=== PATIENT | male | born 1965 | race Caucasian/White ===

== ENCOUNTER → 2020-03-19 08:50 | Outpatient (BNVA) | payer OTHER, SELFPAY | PROVIDERS: Family Provider Family Medicine; PCP Family Medicine; Visit Provider Nurse Practitioner Family | DX: Z20.828 Contact with and (suspected) exposure to other viral communicable diseases (principal) | CPT/HCPCS: 87635 ==

== ENCOUNTER → 2022-07-12 08:23 | Outpatient (BNVA) | payer OTHER, SELFPAY | PROVIDERS: Family Provider Family Medicine; PCP Family Medicine; Visit Provider Dermatology | DX: Z01.89 Encounter for other specified special examinations (principal) ==

== ENCOUNTER 2023-02-15 12:00 | Outpatient (CLI) | payer OTHER, SELFPAY | END 2023-02-15 12:01 | disposition home or self-care (01) | LOC: SLEEP 02-16 11:41 | PROVIDERS: Family Provider Family Medicine; PCP Family Medicine; Visit Provider Family Medicine | DX: G47.33 Obstructive sleep apnea (adult) (pediatric) (principal) | CPT/HCPCS: G0399 ==

== ENCOUNTER → 2023-09-05 08:40 | Outpatient (BNVA) | payer OTHER, SELFPAY | PROVIDERS: Family Provider Family Medicine; PCP Family Medicine; Visit Provider Family Medicine | DX: Z00.00 Encounter for general adult medical examination without abnormal findings (principal); I10 Essential (primary) hypertension; N18.9 Chronic kidney disease, unspecified; R73.03 Prediabetes; R53.83 Other fatigue; R79.89 Other specified abnormal findings of blood chemistry | CPT/HCPCS: 80053; 80061; 82306; 83036; 84443; 85025 ==

== ENCOUNTER → 2023-09-12 08:15 | Outpatient (BNVA) | payer OTHER, SELFPAY | PROVIDERS: Family Provider Family Medicine; PCP Family Medicine; Visit Provider Family Medicine | DX: R79.89 Other specified abnormal findings of blood chemistry (principal); E11.9 Type 2 diabetes mellitus without complications | CPT/HCPCS: 80074; 80076; 86618; 86666; 86757 ==

== ENCOUNTER → 2024-01-04 11:48 | Outpatient (BNVA) | payer OTHER, SELFPAY | PROVIDERS: Family Provider Family Medicine; PCP Family Medicine; Visit Provider Family Medicine | DX: E11.9 Type 2 diabetes mellitus without complications (principal) | CPT/HCPCS: 80053; 83036 ==

== ENCOUNTER → 2024-01-09 07:20 | Outpatient (BNVA) | payer OTHER, SELFPAY | PROVIDERS: Family Provider Family Medicine; PCP Family Medicine; Visit Provider Family Medicine | DX: R79.89 Other specified abnormal findings of blood chemistry (principal); R51.9 Headache, unspecified | CPT/HCPCS: 80074; 82525; 83540; 83690; 86003; 86008; 86140; 86618; 86666; 86757 ==

== ENCOUNTER 2024-01-25 07:58 | Outpatient (CLI) | payer OTHER, SELFPAY ==
--- NOTE | 2024-01-25 08:30 | US_ITS ---
WS: [id number] RIGHT UPPER QUADRANT ULTRASOUND HISTORY: elevated lft's COMPARISON: CT 12/26/2013 Liver: 15.0 cm in length. Liver is normal size but there is marked hepatic steatosis. Poor visualizat ion of the portal triads. No discrete mass. Portal Vein: Normal hepatopetal flow with monophasic waveform. Gallbladder: Limited visualization due to body habitus. No stones identified. CBD: 0.4 cm Pancreas: Not visualized. Right kidney: 10.9 cm in length. Normal size and echogenicity. No hydronephrosis or mass. Aorta and IVC: Negative aorta. IVC is not visualized. No ascites. US/US liver [id number] IMPRESSION: 1. Limited RIGHT upper quadrant ultrasound by body habitus. 2. Diffuse advanced hepatic steatosis. 3. Negative gallbladder. 4. Nonvisualization of the pancreas.
== END 2024-01-25 07:59 | disposition home or self-care (01) ==
LOC: RAD 07:58
PROVIDERS: Family Provider Family Medicine; PCP Family Medicine; Visit Provider Family Medicine
DX: R79.89 Other specified abnormal findings of blood chemistry (principal); K76.0 Fatty (change of) liver, not elsewhere classified
CPT/HCPCS: 76705; 80074; 82525; 83540; 83690; 86003; 86008; 86140; 86618; 86666; 86757

== ENCOUNTER 2024-02-29 11:40 | Outpatient (CLI) | payer OTHER, SELFPAY ==
--- NOTE | 2024-02-29 12:00 | CTR_ITS ---
PROCEDURE INFORMATION: Exam: CT Abdomen Without And With Contrast Exam date and time: 02/29/2024 11:53 AM Age: 58 years old Clinical indication: Abnormal findings; Abnormal lab test; Elevated lipase; Prior surgery; Surgery date: 6+ months; Surgery type: Appy; Additional info: Fatty liver, elevated lipase TECHNIQUE: Imaging protocol: Computed tomography of the abdomen without and with contrast. Radiation optimization: All CT scans at this facility use at least one of these dose optimization techniques: automated exposure control; mA and/or kV adjustment per patient size (includes targeted exams where dose is matched to clinical indication); or iterative reconstruction. Contrast material: OMNI 350; Contrast volume: 100 ml; Contrast route: INTRAVENOUS (IV); COMPARISON: [place] liver [id number] 01/25/2024 8:09 AM RADIATION DOSE METRICS: Total DLP (mGy-cm): 2616.51 FINDINGS: Liver: Moderate hepatic steatosis noted. Slight nodular contour to the liver margins. Cirrhosis not excluded. There are scattered ill-defined hypodensities in the liver on the precontrast study Gallbladder and biliary ducts: Normal. No calcified stones. No ductal dilation. Pancreas: Normal. No ductal dilation. Spleen: Normal. No splenomegaly. Adrenal glands: Normal. No mass. Kidneys: Normal. No hydronephrosis. Stomach and bowel: Mildly prominent small bowel loops noted in the right lower quadrant. Appendix: There has been appendectomy. Intraperitoneal space: Unremarkable. No free air. No significant fluid collection. Vasculature: Heterogeneous density in the portal veins likely mixing artifact. Lymph nodes: Unremarkable. No enlarged lymph nodes. Bones/joints: Unremarkable. No acute fracture. No dislocation. Soft tissues: Unremarkable. CT/CT abdomen wo/w con [id number] IMPRESSION: 1. No acute findings. 2. Findings concerning for cirrhosis. Consider medical liver biopsy if indicated.
[2024-02-29] MEDS: iohexol 350 mg/mL 500 mL Btl (per mL) IV (12:03)
== END 2024-02-29 11:41 | disposition home or self-care (01) ==
PROVIDERS: PCP Family Medicine; Visit Provider Family Medicine
DX: R79.89 Other specified abnormal findings of blood chemistry (principal); K76.0 Fatty (change of) liver, not elsewhere classified; R93.2 Abnormal findings on diagnostic imaging of liver and biliary tract; Z90.49 Acquired absence of other specified parts of digestive tract
CPT/HCPCS: 74170

== ENCOUNTER → 2024-04-09 07:56 | Outpatient (BNVA) | payer OTHER, SELFPAY | PROVIDERS: PCP Family Medicine; Visit Provider Family Medicine | DX: E11.9 Type 2 diabetes mellitus without complications (principal); R79.89 Other specified abnormal findings of blood chemistry | CPT/HCPCS: 80053; 83036 ==

== ENCOUNTER → 2024-07-10 09:57 | Outpatient (BNVA) | payer OTHER, SELFPAY | PROVIDERS: PCP Family Medicine; Visit Provider Family Medicine | DX: N18.9 Chronic kidney disease, unspecified (principal); I10 Essential (primary) hypertension; R73.03 Prediabetes; E11.9 Type 2 diabetes mellitus without complications; R79.89 Other specified abnormal findings of blood chemistry | CPT/HCPCS: 80053; 80061; 83036; 85025 ==

== ENCOUNTER 2024-08-09 09:53 | Outpatient (CLI) | payer OTHER, SELFPAY | END 2024-08-09 09:54 | disposition home or self-care (01) | LOC: LAB 09:57 | PROVIDERS: PCP Family Medicine; Visit Provider Nurse Practitioner Family | DX: R74.01 Elevation of levels of liver transaminase levels (principal); K76.0 Fatty (change of) liver, not elsewhere classified | CPT/HCPCS: 81256 ==

== ENCOUNTER → 2024-10-10 10:47 | Outpatient (BNVA) | payer OTHER, SELFPAY | PROVIDERS: PCP Family Medicine; Visit Provider Family Medicine | DX: I10 Essential (primary) hypertension (principal); R73.03 Prediabetes; N18.9 Chronic kidney disease, unspecified | CPT/HCPCS: 80053; 80061; 83036; 85025 ==

== ENCOUNTER 2024-10-21 01:08 | Emergency (ER) | payer OTHER, SELFPAY ==
[2024-10-21 01:11] VITALS: BP 134/102; PULSE 113; RESP 16; TEMP 36.8; O2SAT 93; BMI 31.9
[2024-10-21 02:02] LABS: Basophils % 0.1 %; Eosinophils % 0.1 %; Hematocrit 55.1 % (37-53); Lymphocytes # 1.6 10^3/uL (0.8-4.8); Lymphocytes % 9.7 %; Mean Corpuscular HGB Conc 33.8 g/dL (30-55); Mean Corpuscular Hemoglobin 31.3 pg (27-33); Mean Corpuscular Volume 92.6 fl (82-101); Mean Platelet Volume 10.5 fL (7.4-10.4); Monocytes # 1.1 10^3/uL (0.2-0.9); Monocytes % 6.4 %; Neutrophils # 13.98 10^3/uL (1.8-7.7); Neutrophils % 83.3 %; Nucleated Red Blood Cells % 0 %; Platelet Count 175 10^3/cmm (157-399); Red Blood Count 5.95 10^6/uL (3.85-5.65); Red Cell Distribution Width 12.9 % (12.1-15.1); White Blood Count 16.78 10^3/uL (3.29-11.43)
[2024-10-21 02:20] LABS: Alanine Aminotransferase 122 U/L (0-41); Albumin Level 4.4 g/dL (3.5-5.2); Alkaline Phosphatase 83 U/L (40-130); Anion Gap 21.3 (5-19); Aspartate Amino Transferase 50 U/L (0-40); Blood Urea Nitrogen 23 mg/dL (6-20); Calcium 9.5 mg/dL (8.5-10.5); Carbon Dioxide 18 mmol/L (22-29); Chloride 103 mmol/L (98-107); Creatinine Clr Calc Pharmacy 96.6457; Globulin 3.8 g/dL (1.3-4.6); Glomerular Filtration Rate 68.5 mL/min (90-130); Glucose 278 mg/dL (65-115); Osmolality Calculated 300 mOsm/kg (285-295); Potassium 4.3 mmol/L (3.5-5.1); Sodium 138 mmol/L (136-145); Total Protein 8.2 g/dL (6.6-8.7)
[2024-10-21 03:48] LABS: C Reactive Protein 18.2 mg/L (0.0-4.9); Creatine Phosphokinase 294 U/L (39-308)
--- NOTE | 2024-10-21 04:29 | W.ED.NAVMDI ---
Documented by User: Barrington Denny DO 10/21/24 05:23 HPI - Nausea/Vomiting/Diarrhea General: Chief complaint: Nausea/Vomiting/Diarrhea Stated complaint: Possible Heat\Cramps Time Seen by Provider: 10/21/24 04:10 History of Present Illness: 58-year-old male gentleman he says he was out in the heat all day yesterday. Around 4 PM, he began to vomit. He vomited every hour for several hours. He is feeling quite dehydrated now. He is experiencing leg cramps and stomach cramps at times. No fever. No diarrhea. No abdominal pain. No chest pain. No recent cough. No sick contacts. Related Data Home Medications ?Medication ?Instructions ?Recorded ?Confirmed aspirin 81 mg tablet,delayed 81 mg PO DAILY 08/30/21 10/17/24 release cholecalciferol (vitamin D3) 50 50 mcg PO DAILY 08/30/21 10/17/24 mcg (2,000 unit) capsule Previous Rx's ?Medication ?Instructions ?Recorded scopolamine base 1 mg over 3 days 1 patch transdermal Q3D PRN nausea 08/23/22 transdermal patch and vomiting #4 ea Auto titrating C-pap 6-16 #1 ea 03/28/23 c-pap mask and supplies #1 ea 07/16/24 glimepiride 2 mg tablet 2 mg PO BID #60 tabs 07/16/24 ondansetron 4 mg disintegrating 4 mg PO Q6H PRN nausea and 10/21/24 tablet vomiting #14 tabs Allergies Allergy/AdvReac Type Severity Reaction Status Date / Time No Known Allergies Allergy Verified 02/08/24 12:21 [facility] ED PFSH: Medical History GUADALUPE (nonalcoholic steatohepatitis) Hemochromatosis Hepatic steatosis Obstructive sleep apnea Colon polyps Diabetes mellitus Surgical History History of appendectomy History of colonoscopy 5 years ago History of hemorrhoidectomy Social History Smoking and tobacco/nicotine status: unknown if used tobacco/nicotine Physical Exam Const: COMMON NORMALS: no acute distress GENERAL APPEARANCE: cooperative; not ill appearing and not frail appearing HENMT: COMMON NORMALS: normocephalic, atraumatic and Normal external nose present HEAD & SCALP: normocephalic and atraumatic FACE & SINUS: normal facial exam and face symmetric NOSE: Normal external nose present Eye: COMMON NORMALS: Equal, round and reactive pupils present and EOMs intact bilaterally PUPIL: Yes Equal, round and reactive pupils present Neck/C-Spine: GENERAL: Yes trachea midline Chest: CHEST: Yes Symmetrical chest wall rise Resp: COMMON NORMALS: normal respiratory effort, No retractions, No use of accessory muscles and clear to auscultation bilaterally AUSCULTATION: clear to auscultation bilaterally Cardio: COMMON NORMALS: regular rate and regular rhythm RATE: regular rate RHYTHM: regular rhythm GI: COMMON NORMALS: Normal to inspection, nondistended, normoactive bowel sounds present PALPATION: No Tenderness to palpation present (GI) Extremity: COMMON NORMALS: no pedal edema Neuro: MARYSE COMA SCALE: document GCS findings Maryse coma scale eye opening: Spontaneous [place] coma scale verbal response: Orientated [place] coma scale motor response: [place] commands Maryse coma scale total score: 15 SENSORY EXAM: Yes extremities (intact) Psych: COMMON NORMALS: speech normal SPEECH: Yes normal speech Skin: COMMON NORMALS: no rashes or lesions noted GENERAL SKIN EXAM: no rashes or lesions noted Course Vital Signs: Vital signs: Vital Signs Temperature 98.3 F 10/21/24 01:11 Pulse Rate 92 10/21/24 06:00 Respiratory Rate 16 10/21/24 06:00 Blood Pressure 119/75 10/21/24 06:00 Pulse Oximetry 92 10/21/24 06:00 Oxygen Delivery Me thod Room Air 10/21/24 06:00 MDM - Nausea/Vomiting/Diarrhea Medical Decision Making Patient has a leukocytosis of 17 without significant left shift. CRP is 18. He was mildly tachycardic on arrival, not currently. His bicarbonate level is 18, anion gap of 21. Blood sugar is 278. He appears dehydrated clinically. He will be given 2.5 L bolus, antiemetics. His belly is not tender at all on exam. Do not suspect infectious or inflammatory process. He tells me he has hemochromatosis from higher iron levels, and is undergoing phlebotomy therapy later today. I think this is reasonable, especially given the amount of fluid we have given him in the ER. Lab Data 10/21/24 01:44 10/21/24 01:44 Laboratory Results WBC 16.78 10^3/uL (3.29-11.43) H 10/21/24 01:44 RBC 5.95 10^6/uL (3.85-5.65) H 10/21/24 01:44 Hgb 18.60 g/dL (11.27-16.99) H 10/21/24 01:44 Hct 55.1 % (37-53) H 10/21/24 01:44 MCV 92.6 fl (82-101) 10/21/24 01:44 MCH 31.3 pg (27-33) 10/21/24 01:44 MCHC 33.8 g/dL (30-55) 10/21/24 01:44 RDW 12.9 % (12.1-15.1) 10/21/24 01:44 Plt Count 175 10^3/cmm (157-399) 10/21/24 01:44 MPV 10.5 fL (7.4-10.4) H 10/21/24 01:44 Neut % (Auto) 83.3 % 10/21/24 01:44 Lymph % (Auto) 9.7 % 10/21/24 01:44 [place] % (Auto) 6.4 % 10/21/24 01:44 Eos % (Auto) 0.1 % 10/21/24 01:44 Baso % (Auto) 0.1 % 10/21/24 01:44 Neut # (Auto) 13.98 10^3/uL (1.8-7.7) H 10/21/24 01:44 Lymph # (Auto) 1.6 10^3/uL (0.8-4.8) 10/21/24 01:44 [place] # (Auto) 1.1 10^3/uL (0.2-0.9) H 10/21/24 01:44 Eos # (Auto) 0.0 10^3/uL (0.0-0.8) 10/21/24 01:44 Baso # (Auto) 0.0 10^3/uL (0.0-0.1) 10/21/24 01:44 Nucleated RBC % (auto) 0 % 10/21/24 01:44 Nucleated RBCs # 0.0 /100WBC 10/21/24 01:44 Sodium 138 mmol/L (136-145) 10/21/24 01:44 Potassium 4.3 mmol/L (3.5-5.1) 10/21/24 01:44 Chloride 103 mmol/L (98-107) 10/21/24 01:44 Carbon Dioxide 18 mmol/L (22-29) L 10/21/24 01:44 Anion Gap 21.3 (5-19) H 10/21/24 01:44 BUN 23 mg/dL (6-20) H 10/21/24 01:44 Creatinine 1.1 mg/dL (0.7-1.2) 10/21/24 01:44 GFR Calculation 68.5 mL/min (90-130) L 10/21/24 01:44 Glucose 278 mg/dL (65-115) H 10/21/24 01:44 Calculated Osmolality 300 mOsm/kg (285-295) H 10/21/24 01:44 Calcium 9.5 mg/dL (8.5-10.5) 10/21/24 01:44 Total Bilirubin 1.0 mg/dL (0.15-1.2) 10/21/24 01:44 AST 50 U/L (0-40) H 10/21/24 01:44 ALT 122 U/L (0-41) H 10/21/24 01:44 Alkaline Phosphatase 83 U/L (40-130) 10/21/24 01:44 Creatine Kinase 294 U/L (39-308) 10/21/24 01:44 C-Reactive Protein 18.2 mg/L (0.0-4.9) H 10/21/24 01:44 Total Protein 8.2 g/dL (6.6-8.7) 10/21/24 01:44 Albumin 4.4 g/dL (3.5-5.2) 10/21/24 01:44 Globulin 3.8 g/dL (1.3-4.6) 10/21/24 01:44 Urine Color Yellow (Yellow) 10/21/24 06:05 Urine Appearance Clear (CLEAR) 10/21/24 06:05 Urine pH 5.0 (5-7) 10/21/24 06:05 Ur Specific [place] 1.031 (1.005-1.030) H 10/21/24 06:05 Urine Protein Negative (Negative) 10/21/24 06:05 Urine Glucose (UA) 2+ (Normal) H 10/21/24 06:05 Urine Ketones 1+ (Negative) H 10/21/24 06:05 Urine Blood Negative (Negative) 10/21/24 06:05 Urine Nitrate Negative (Negative) 10/21/24 06:05 Urine Bilirubin Negative (Negative) 10/21/24 06:05 Urine Urobilinogen 1.0 mg/dL (Negative) 10/21/24 06:05 Ur Leukocyte Esterase Negative (Negative) 10/21/24 06:05 Urine RBC 0-2 /hpf (0-2) 10/21/24 06:05 Urine WBC 0-5 /hpf (0-5) 10/21/24 06:05 Ur Squamous Epith Cells 0-5 /hpf (0-5) 10/21/24 06:05 Amorphous Sediment Not Reportable 10/21/24 06:05 Urine Bacteria None seen /hpf (NONE) 10/21/24 06:05 Hyaline Casts 1.65 /lpf 10/21/24 06:05 Serum Ketones Negative (Negative) 10/21/24 01:44 Discharge Plan Discharge Patient Disposition: Home Clinical Impression: Dehydration, Heat cramp, initial encounter Condition: Stable Prescriptions: New ondansetron 4 mg tablet,disintegrating 4 mg PO Q6H PRN (Reason: nausea and vomiting) Qty: 14 0RF No Action cholecalciferol (vitamin D3) 50 mcg (2,000 unit) capsule 50 mcg PO DAILY aspirin 81 mg tablet,delayed release (DR/EC) 81 mg PO DAILY glimepiride 2 mg tablet 2 mg PO BID Qty: 60 11RF (DME) c-pap mask and supplies See Rx Instructions .Route .MEDSUPPLY Qty: 1 0RF Rx Instructions: As directed scopolamine base 1 mg over 3 days patch 3 day 1 patch transdermal Q3D PRN (Reason: nausea and vomiting) Qty: 4 0RF (DME) Auto titrating C-pap 6-16 See Rx Instructions .Route .MEDSUPPLY Qty: 1 11RF Rx Instructions: As directed Discharge Orders: Discharge ED (Routine); Ordered 10/21/24 Ordered By: Barrington Denny Referrals: Luis M Baca MD [Primary Care Provider, Family Practice] - 1-3 days Patient Instructions: Dehydration (ED), Heat Exhaustion (ED), Opioid Safety, Pain Management Activity Restrictions/Additional Instructions: Thank you for choosing [facility] for your healthcare needs today. It is very important that you follow up as instructed or that you return to the Emergency Department should you have concerns or if your condition changes or worsens in any way. Drink plenty of clear liquids for the next 48 hours. Stay out of the heat. Return for continued vomiting, development of belly pain, chest discomfort, any other concerning symptoms. Take the medication prescribed for nausea scheduled every 6 hours while awake for the first 24 hours, then as needed following that. Call your doctor later this morning for follow-up appointment. 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 [employer] Fwd Documented by User: Tremayne Valentine DO 10/21/24 06:58 HPI - Nausea/Vomiting/Diarrhea General: Chief complaint: Nausea/Vomiting/Diarrhea Stated complaint: Possible Heat\Cramps Time Seen by Provider: 10/21/24 04:10 Related Data Home Medications ?Medication ?Instructions ?Recorded ?Confirmed aspirin 81 mg tablet,delayed 81 mg PO DAILY 08/30/21 10/17/24 release cholecalciferol (vitamin D3) 50 50 mcg PO DAILY 08/30/21 10/17/24 mcg (2,000 unit) capsule Previous Rx's ?Medication ?Instructions ?Recorded scopolamine base 1 mg over 3 days 1 patch transdermal Q3D PRN nausea 08/23/22 transdermal patch and vomiting #4 ea Auto titrating C-pap 6-16 #1 ea 03/28/23 c-pap mask and supplies #1 ea 07/16/24 glimepiride 2 mg tablet 2 mg PO BID #60 tabs 07/16/24 ondansetron 4 mg disintegrating 4 mg PO Q6H PRN nausea and 10/21/24 tablet vomiting #14 tabs Allergies Allergy/AdvReac Type Severity Reaction Status Date / Time No Known Allergies Allergy Verified 02/08/24 12:21 [facility] ED PFS: Medical History GUADALUPE (nonalcoholic steatohepatitis) Hemochromatosis Hepatic steatosis Obstructive sleep apnea Colon polyps Diabetes mellitus Surgical History History of appendectomy History of colonoscopy 5 years ago History of hemorrhoidectomy Social History Smoking and tobacco/nicotine status: unknown if used tobacco/nicotine Physical Exam Neuro: MARYSE COMA SCALE: document GCS findings [place] coma scale total score: 15 Course Vital Signs: Vital signs: Vital Signs Temperature 98.3 F 10/21/24 01:11 Pulse Rate 92 10/21/24 06:00 Respiratory Rate 16 10/21/24 06:00 Blood Pressure 119/75 10/21/24 06:00 Pulse Oximetry 92 10/21/24 06:00 Oxygen Delivery Me thod Room Air 10/21/24 06:00 MDM - Nausea/Vomiting/Diarrhea Medical Decision Making Patient has a leukocytosis of 17 without significant left shift. CRP is 18. He was mildly tachycardic on arrival, not currently. His bicarbonate level is 18, anion gap of 21. Blood sugar is 278. He appears dehydrated clinically. He will be given 2.5 L bolus, antiemetics. His belly is not tender at all on exam. Do not suspect infectious or inflammatory process. He tells me he has hemochromatosis from higher iron levels, and is undergoing phlebotomy therapy later today. I think this is reasonable, especially given the amount of fluid we have given him in the ER. Labs and imaging reviewed UA negative patient has completed fluids will discharge home with ondansetron rest increased oral fluid intake at home. Reviewed with patient he is feeling somewhat better discharged home. Lab Data 10/21/24 01:44 10/21/24 01:44 Laboratory Results WBC 16.78 10^3/uL (3.29-11.43) H 10/21/24 01:44 RBC 5.95 10^6/uL (3.85-5.65) H 10/21/24 01:44 Hgb 18.60 g/dL (11.27-16.99) H 10/21/24 01:44 Hct 55.1 % (37-53) H 10/21/24 01:44 MCV 92.6 fl (82-101) 10/21/24 01:44 MCH 31.3 pg (27-33) 10/21/24 01:44 MCHC 33.8 g/dL (30-55) 10/21/24 01:44 RDW 12.9 % (12.1-15.1) 10/21/24 01:44 Plt Count 175 10^3/cmm (157-399) 10/21/24 01:44 MPV 10.5 fL (7.4-10.4) H 10/21/24 01:44 Neut % (Auto) 83.3 % 10/21/24 01:44 Lymph % (Auto) 9.7 % 10/21/24 01:44 [place] % (Auto) 6.4 % 10/21/24 01:44 Eos % (Auto) 0.1 % 10/21/24 01:44 Baso % (Auto) 0.1 % 10/21/24 01:44 Neut # (Auto) 13.98 10^3/uL (1.8-7.7) H 10/21/24 01:44 Lymph # (Auto) 1.6 10^3/uL (0.8-4.8) 10/21/24 01:44 [place] # (Auto) 1.1 10^3/uL (0.2-0.9) H 10/21/24 01:44 Eos # (Auto) 0.0 10^3/uL (0.0-0.8) 10/21/24 01:44 Baso # (Auto) 0.0 10^3/uL (0.0-0.1) 10/21/24 01:44 Nucleated RBC % (auto) 0 % 10/21/24 01:44 Nucleated RBCs # 0.0 /100WBC 10/21/24 01:44 Sodium 138 mmol/L (136-145) 10/21/24 01:44 Potassium 4.3 mmol/L (3.5-5.1) 10/21/24 01:44 Chloride 103 mmol/L (98-107) 10/21/24 01:44 Carbon Dioxide 18 mmol/L (22-29) L 10/21/24 01:44 Anion Gap 21.3 (5-19) H 10/21/24 01:44 BUN 23 mg/dL (6-20) H 10/21/24 01:44 Creatinine 1.1 mg/dL (0.7-1.2) 10/21/24 01:44 GFR Calculation 68.5 mL/min (90-130) L 10/21/24 01:44 Glucose 278 mg/dL (65-115) H 10/21/24 01:44 Calculated Osmolality 300 mOsm/kg (285-295) H 10/21/24 01:44 Calcium 9.5 mg/dL (8.5-10.5) 10/21/24 01:44 Total Bilirubin 1.0 mg/dL (0.15-1.2) 10/21/24 01:44 AST 50 U/L (0-40) H 10/21/24 01:44 ALT 122 U/L (0-41) H 10/21/24 01:44 Alkaline Phosphatase 83 U/L (40-130) 10/21/24 01:44 Creatine Kinase 294 U/L (39-308) 10/21/24 01:44 C-Reactive Protein 18.2 mg/L (0.0-4.9) H 10/21/24 01:44 Total Protein 8.2 g/dL (6.6-8.7) 10/21/24 01:44 Albumin 4.4 g/dL (3.5-5.2) 10/21/24 01:44 Globulin 3.8 g/dL (1.3-4.6) 10/21/24 01:44 Urine Color Yellow (Yellow) 10/21/24 06:05 Urine Appearance Clear (CLEAR) 10/21/24 06:05 Urine pH 5.0 (5-7) 10/21/24 06:05 Ur Specific [place] 1.031 (1.005-1.030) H 10/21/24 06:05 Urine Protein Negative (Negative) 10/21/24 06:05 Urine Glucose (UA) 2+ (Normal) H 10/21/24 06:05 Urine Ketones 1+ (Negative) H 10/21/24 06:05 Urine Blood Negative (Negative) 10/21/24 06:05 Urine Nitrate Negative (Negative) 10/21/24 06:05 Urine Bilirubin Negative (Negative) 10/21/24 06:05 Urine Urobilinogen 1.0 mg/dL (Negative) 10/21/24 06:05 Ur Leukocyte Esterase Negative (Negative) 10/21/24 06:05 Urine RBC 0-2 /hpf (0-2) 10/21/24 06:05 Urine WBC 0-5 /hpf (0-5) 10/21/24 06:05 Ur Squamous Epith Cells 0-5 /hpf (0-5) 10/21/24 06:05 Amorphous Sediment Not Reportable 10/21/24 06:05 Urine Bacteria None seen /hpf (NONE) 10/21/24 06:05 Hyaline Casts 1.65 /lpf 10/21/24 06:05 Serum Ketones Negative (Negative) 10/21/24 01:44 No radiology studies performed this visit Discharge Plan Discharge Patient Disposition: Home Clinical Impression: Dehydration, Heat cramp, initial encounter Condition: Stable Prescriptions: New ondansetron 4 mg tablet,disintegrating 4 mg PO Q6H PRN (Reason: nausea and vomiting) Qty: 14 0RF No Action cholecalciferol (vitamin D3) 50 mcg (2,000 unit) capsule 50 mcg PO DAILY aspirin 81 mg tablet,delayed release (DR/EC) 81 mg PO DAILY glimepiride 2 mg tablet 2 mg PO BID Qty: 60 11RF (DME) c-pap mask and supplies See Rx Instructions .Route .MEDSUPPLY Qty: 1 0RF Rx Instructions: As directed scopolamine base 1 mg over 3 days patch 3 day 1 patch transdermal Q3D PRN (Reason: nausea and vomiting) Qty: 4 0RF (DME) Auto titrating C-pap 6-16 See Rx Instructions .Route .MEDSUPPLY Qty: 1 11RF Rx Instructions: As directed Discharge Orders: Discharge ED (Routine); Ordered 10/21/24 Ordered By: Barrington Denny Referrals: Luis M Baca MD [Primary Care Provider, Family Practice] - 1-3 days Patient Instructions: Dehydration (ED), Heat Exhaustion (ED), Opioid Safety, Pain Management Activity Restrictions/Additional Instructions: Thank you for choosing [facility] for your healthcare needs today. It is very important that you follow up as instructed or that you return to the Emergency Department should you have concerns or if your condition changes or worsens in any way. Drink plenty of clear liquids for the next 48 hours. Stay out of the heat. Return for continued vomiting, development of belly pain, chest discomfort, any other concerning symptoms. Take the medication prescribed for nausea scheduled every 6 hours while awake for the first 24 hours, then as needed following that. Call your doctor later this morning for follow-up appointment. 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 Lakisha Castano
[2024-10-21 04:39] LABS: Ketone (Acetest) Serum Negative (Negative)
[2024-10-21] MEDS: ondansetron 2 mg/ML SDV 2 mL 8 MG IVP (04:39)
[2024-10-21] MEDS: sodium chloride 0.9% 1,000 ML 999 ML IV ×2 (04:39→06:19)
[2024-10-21 06:00] VITALS: BP 119/75; PULSE 92; RESP 16; O2SAT 92
[2024-10-21] MEDS: sodium chloride 0.9% 500 ML 999 ML IV (06:19)
[2024-10-21 06:27] LABS: Bilirubin Urine Negative (Negative); Blood Urine Negative (Negative); Glucose Urine UA 2+ (Normal); Ketones Urine 1+ (Negative); Leukocyte Esterase Urine Negative (Negative); Nitrate Urine Negative (Negative); Protein Urine Negative (Negative); Urine Appearance Clear (CLEAR); Urine Color Yellow (Yellow)
[2024-10-21 06:32] LABS: Add Urine Microscopic? YES; Bacteria Urine None Seen /hpf; Hyaline Casts Urine 1.65 /lpf; RBC Urine 0-2 /hpf (0-2); Squamous Epithelial Cell Urine 0-5 /hpf (0-5); WBC Urine 0-5 /hpf (0-5)
[2024-10-21 06:45] LABS: Add Urine Culture? No; Specific Gravity, Urine 1.031 (1.005-1.030)
[2024-10-21 09:30] VITALS: BP 131/87; PULSE 88; RESP 17; O2SAT 93
== END 2024-10-21 07:12 | disposition home or self-care (01) ==
PROVIDERS: Emergency Medicine; Emergency Provider Family Medicine; PCP Family Medicine
DX: E86.0 Dehydration (principal); T67.2XXA Heat cramp, initial encounter; X58.XXXA Exposure to other specified factors, initial encounter; Z79.82 Long term (current) use of aspirin; E11.9 Type 2 diabetes mellitus without complications
CPT/HCPCS: 36415; 80053; 81001; 82009; 82550; 85025; 86140; 96361; 96374; 99284; J2405; J7030; J7040

== ENCOUNTER 2024-10-21 08:14 | Oncology outpatient (recurring) (ONCR) | payer OTHER, SELFPAY ==
[2024-10-21 10:31] VITALS: BP 137/87; PULSE 89; RESP 18; TEMP 36.7
[2024-10-21 10:52] LABS: Basophils % 0.1 %; Hematocrit 47.7 % (37-53); Lymphocytes # 0.4 10^3/uL (0.8-4.8); Lymphocytes % 5.5 %; Mean Corpuscular HGB Conc 33.5 g/dL (30-55); Mean Corpuscular Hemoglobin 31.3 pg (27-33); Mean Corpuscular Volume 93.2 fl (82-101); Monocytes # 0.5 10^3/uL (0.2-0.9); Monocytes % 6.3 %; Neutrophils # 6.51 10^3/uL (1.8-7.7); Neutrophils % 87.7 %; Nucleated Red Blood Cells % 0 %; Platelet Count 112 10^3/cmm (157-399); Red Blood Count 5.12 10^6/uL (3.85-5.65); White Blood Count 7.43 10^3/uL (3.29-11.43)
[2024-10-21 11:13] LABS: Alanine Aminotransferase 81 U/L (0-41); Albumin Level 3.8 g/dL (3.5-5.2); Alkaline Phosphatase 58 U/L (40-130); Anion Gap 18.1 (5-19); Aspartate Amino Transferase 31 U/L (0-40); Blood Urea Nitrogen 20 mg/dL (6-20); Calcium 7.9 mg/dL (8.5-10.5); Carbon Dioxide 22 mmol/L (22-29); Chloride 107 mmol/L (98-107); Ferritin 903 ng/mL (30-400); Globulin 2.7 g/dL (1.3-4.6); Glomerular Filtration Rate 76.5 mL/min (90-130); Glucose 205 mg/dL (65-115); Iron 46 ug/dL (59-158); Osmolality Calculated 305 mOsm/kg (285-295); Percent Saturation 17.8 % (20-50); Potassium 4.1 mmol/L (3.5-5.1); Sodium 143 mmol/L (136-145); Total Bilirubin 0.7 mg/dL (0.15-1.2); Total Iron Binding Capacity 258 mcg/dl; Total Protein 6.5 g/dL (6.6-8.7); Unsaturated Iron Binding 212 ug/dL (112-347)
[2024-10-23 14:20] LABS: Erythropoietin 3.9 mIU/mL (2.6-18.5)
== END 2024-10-28 23:59 | disposition home or self-care (01) ==
PROVIDERS: PCP Family Medicine; Visit Provider Internal Medicine
DX: E83.110 Hereditary hemochromatosis (principal)
CPT/HCPCS: 36415; 80053; 82668; 82728; 83540; 83550; 85025; 99195

== ENCOUNTER 2024-11-26 07:45 | Oncology outpatient (recurring) (ONCR) | payer OTHER, SELFPAY ==
[2024-11-05 13:59] LABS: Hematocrit 46.2 % (37-53); Hemoglobin 15.90 g/dL (11.27-16.99); Mean Corpuscular HGB Conc 34.4 g/dL (30-55); Mean Corpuscular Hemoglobin 31.8 pg (27-33); Mean Corpuscular Volume 92.4 fl (82-101); Nucleated Red Blood Cells % 0 %; Platelet Count 150 10^3/cmm (157-399); Red Blood Count 5.00 10^6/uL (3.85-5.65); White Blood Count 4.83 10^3/uL (3.29-11.43)
[2024-11-05 14:17] LABS: Alanine Aminotransferase 142 U/L (0-41); Albumin Level 3.9 g/dL (3.5-5.2); Alkaline Phosphatase 69 U/L (40-130); Aspartate Amino Transferase 87 U/L (0-40); Blood Urea Nitrogen 17 mg/dL (6-20); Calcium 9.0 mg/dL (8.5-10.5); Carbon Dioxide 24 mmol/L (22-29); Chloride 103 mmol/L (98-107); Globulin 3.0 g/dL (1.3-4.6); Glucose 189 mg/dL (65-115); Osmolality Calculated 289 mOsm/kg (285-295); Sodium 136 mmol/L (136-145); Total Protein 6.9 g/dL (6.6-8.7)
[2024-11-05 14:18] LABS: Anion Gap 13.2 (5-19); Potassium 4.2 mmol/L (3.5-5.1)
[2024-11-05 14:29] LABS: Ferritin 1701 ng/mL (30-400)
[2024-11-05 15:37] VITALS: BP 142/86; PULSE 75; RESP 16; TEMP 36.6; O2SAT 96
[2024-11-18 13:43] LABS: Hematocrit 46.9 % (37-53); Hemoglobin 16.40 g/dL (11.27-16.99); Mean Corpuscular HGB Conc 35.0 g/dL (30-55); Mean Corpuscular Hemoglobin 31.8 pg (27-33); Mean Corpuscular Volume 90.9 fl (82-101); Nucleated Red Blood Cells % 0 %; Platelet Count 142 10^3/cmm (157-399); Red Blood Count 5.16 10^6/uL (3.85-5.65); White Blood Count 5.79 10^3/uL (3.29-11.43)
[2024-11-18 14:04] LABS: Alanine Aminotransferase 139 U/L (0-41); Albumin Level 4.2 g/dL (3.5-5.2); Alkaline Phosphatase 74 U/L (40-130); Anion Gap 17.1 (5-19); Aspartate Amino Transferase 78 U/L (0-40); Blood Urea Nitrogen 16 mg/dL (6-20); Calcium 9.2 mg/dL (8.5-10.5); Carbon Dioxide 23 mmol/L (22-29); Chloride 104 mmol/L (98-107); Creatinine Clr Calc Pharmacy 88.0815; Globulin 2.9 g/dL (1.3-4.6); Glucose 137 mg/dL (65-115); Osmolality Calculated 293 mOsm/kg (285-295); Potassium 4.1 mmol/L (3.5-5.1); Sodium 140 mmol/L (136-145); Total Protein 7.1 g/dL (6.6-8.7)
[2024-11-18 14:22] LABS: Ferritin 1397 ng/mL (30-400)
--- NOTE | 2024-11-18 15:04 | PC.NURSE ---
[place] phlebotomy completed over 8 minutes. Patient has Ferritin of 1397. Per Dr. Preston , he wants patient to be Ferritin 50-100. Patient tolerated Phlebotomy 500grams verbal per Dr. Preston removal. Patient verbalized understanding with all instructions to help lower his ferritin levels, diet changes as example. Patient is stable upon leaving. -JOSHUA Doll
[2024-11-18 15:11] VITALS: BP 146/92; PULSE 76; RESP 17; TEMP 36.8; O2SAT 98
== END 2024-11-28 23:59 | disposition home or self-care (01) ==
LOC: RAD 11-27 → ONCMED 11-27 10:16
PROVIDERS: Internal Medicine; PCP Family Medicine; Visit Provider Internal Medicine Medical Oncology
DX: Z53.9 Procedure and treatment not carried out, unspecified reason (principal)
CPT/HCPCS: 36415; 80053; 82728; 85025; 99195

== ENCOUNTER 2024-12-16 12:33 | Oncology outpatient (recurring) (ONCR) | payer OTHER, SELFPAY ==
[2024-12-02 13:53] LABS: Hematocrit 46.1 % (37-53); Hemoglobin 16.10 g/dL (11.27-16.99); Mean Corpuscular HGB Conc 34.9 g/dL (30-55); Mean Corpuscular Hemoglobin 31.8 pg (27-33); Mean Corpuscular Volume 91.1 fl (82-101); Nucleated Red Blood Cells % 0 %; Platelet Count 148 10^3/cmm (157-399); Red Blood Count 5.06 10^6/uL (3.85-5.65); White Blood Count 5.69 10^3/uL (3.29-11.43)
[2024-12-02 14:23] LABS: Ferritin 1324 ng/mL (30-400)
[2024-12-16 12:59] LABS: Hematocrit 47.4 % (37-53); Hemoglobin 16.50 g/dL (11.27-16.99); Mean Corpuscular HGB Conc 34.8 g/dL (30-55); Mean Corpuscular Hemoglobin 31.7 pg (27-33); Mean Corpuscular Volume 91.2 fl (82-101); Nucleated Red Blood Cells % 0 %; Platelet Count 156 10^3/cmm (157-399); Red Blood Count 5.20 10^6/uL (3.85-5.65); White Blood Count 6.26 10^3/uL (3.29-11.43)
[2024-12-16 13:16] LABS: Ferritin 904 ng/mL (30-400)
[2024-12-16 14:50] VITALS: BP 142/84; PULSE 94; RESP 16; TEMP 36.2; O2SAT 96
== END 2024-12-29 23:59 | disposition home or self-care (01) ==
PROVIDERS: PCP Family Medicine; Visit Provider Internal Medicine Medical Oncology
DX: E83.110 Hereditary hemochromatosis; Z53.9 Procedure and treatment not carried out, unspecified reason
CPT/HCPCS: 36415; 82728; 85025; 99195

== ENCOUNTER → 2025-01-09 15:06 | Outpatient (BNVA) | payer OTHER, SELFPAY | PROVIDERS: PCP Family Medicine; Visit Provider Family Medicine | DX: E11.9 Type 2 diabetes mellitus without complications (principal); E83.119 Hemochromatosis, unspecified; K75.81 Nonalcoholic steatohepatitis (NASH) | CPT/HCPCS: 80053; 80061; 83036 ==

== ENCOUNTER 2025-01-14 13:29 | Oncology outpatient (recurring) (ONCR) | payer OTHER, SELFPAY ==
[2024-12-31 14:21] LABS: Hematocrit 46.1 % (37-53); Hemoglobin 16.20 g/dL (11.27-16.99); Mean Corpuscular HGB Conc 35.1 g/dL (30-55); Mean Corpuscular Hemoglobin 32.5 pg (27-33); Mean Corpuscular Volume 92.6 fl (82-101); Nucleated Red Blood Cells % 0 %; Platelet Count 147 10^3/cmm (157-399); Red Blood Count 4.98 10^6/uL (3.85-5.65); White Blood Count 6.53 10^3/uL (3.29-11.43)
[2024-12-31 14:37] LABS: Ferritin 832 ng/mL (30-400)
[2024-12-31 15:28] VITALS: BP 134/88; PULSE 81; RESP 17; TEMP 36.7; O2SAT 92
[2025-01-14 13:48] LABS: Hematocrit 46.1 % (37-53); Hemoglobin 16.00 g/dL (11.27-16.99); Mean Corpuscular HGB Conc 34.7 g/dL (30-55); Mean Corpuscular Hemoglobin 31.7 pg (27-33); Mean Corpuscular Volume 91.3 fl (82-101); Nucleated Red Blood Cells % 0 %; Platelet Count 146 10^3/cmm (157-399); Red Blood Count 5.05 10^6/uL (3.85-5.65); White Blood Count 5.46 10^3/uL (3.29-11.43)
[2025-01-14 14:22] LABS: Ferritin 546 ng/mL (30-400)
[2025-01-14 15:00] VITALS: BP 155/90; PULSE 77; RESP 17; TEMP 36.8; O2SAT 92
== END 2025-01-28 23:59 | disposition home or self-care (01) ==
PROVIDERS: PCP Family Medicine; Visit Provider Internal Medicine Medical Oncology
DX: E83.110 Hereditary hemochromatosis; Z53.9 Procedure and treatment not carried out, unspecified reason
CPT/HCPCS: 36415; 82728; 85025; 99195

== ENCOUNTER 2025-02-24 13:00 | Oncology outpatient (recurring) (ONCR) | payer OTHER, SELFPAY ==
[2025-01-29 13:45] LABS: Hematocrit 45.2 % (37-53); Hemoglobin 15.80 g/dL (11.27-16.99); Mean Corpuscular HGB Conc 35.0 g/dL (30-55); Mean Corpuscular Hemoglobin 31.7 pg (27-33); Mean Corpuscular Volume 90.6 fl (82-101); Nucleated Red Blood Cells % 0 %; Platelet Count 147 10^3/cmm (157-399); Red Blood Count 4.99 10^6/uL (3.85-5.65); White Blood Count 5.10 10^3/uL (3.29-11.43)
[2025-01-29 14:09] LABS: Ferritin 395 ng/mL (30-400)
[2025-01-29 16:14] VITALS: BP 148/80; PULSE 74; TEMP 36.4; O2SAT 93
[2025-02-10 13:45] LABS: Hematocrit 46.0 % (37-53); Hemoglobin 15.70 g/dL (11.27-16.99); Mean Corpuscular HGB Conc 34.1 g/dL (30-55); Mean Corpuscular Hemoglobin 30.9 pg (27-33); Mean Corpuscular Volume 90.6 fl (82-101); Nucleated Red Blood Cells % 0 %; Platelet Count 153 10^3/cmm (157-399); Red Blood Count 5.08 10^6/uL (3.85-5.65); White Blood Count 4.83 10^3/uL (3.29-11.43)
[2025-02-10 14:00] LABS: Ferritin 250 ng/mL (30-400)
--- NOTE | 2025-02-10 14:47 | PC.NURSE ---
Patient states that he has noticed he has been bruising more easily lately and wanted to know if it was related to the phlebotomy. It was noted that patient's platelet counts were slightly low. Labs were shown to Dr Preston, he states he is not concerned with the platelets and to continue on with the ordered phlebotomies.
[2025-02-10 14:52] VITALS: BP 136/76; PULSE 78; RESP 16; TEMP 36.8
[2025-02-24 13:18] LABS: Hematocrit 44.9 % (37-53); Hemoglobin 15.40 g/dL (11.27-16.99); Mean Corpuscular HGB Conc 34.3 g/dL (30-55); Mean Corpuscular Hemoglobin 31.1 pg (27-33); Mean Corpuscular Volume 90.7 fl (82-101); Nucleated Red Blood Cells % 0 %; Platelet Count 132 10^3/cmm (157-399); Red Blood Count 4.95 10^6/uL (3.85-5.65); White Blood Count 4.79 10^3/uL (3.29-11.43)
[2025-02-24 13:32] LABS: Ferritin 159 ng/mL (30-400)
== END 2025-02-28 23:59 | disposition home or self-care (01) ==
PROVIDERS: Internal Medicine Medical Oncology; PCP Family Medicine; Visit Provider Internal Medicine
DX: E83.110 Hereditary hemochromatosis; Z53.9 Procedure and treatment not carried out, unspecified reason
CPT/HCPCS: 36415; 82728; 85025; 99195

== ENCOUNTER 2025-03-24 12:47 | Oncology outpatient (recurring) (ONCR) | payer OTHER, SELFPAY ==
[2025-03-24 13:10] LABS: Hematocrit 47.5 % (37-53); Hemoglobin 16.10 g/dL (11.27-16.99); Mean Corpuscular HGB Conc 33.9 g/dL (30-55); Mean Corpuscular Hemoglobin 30.2 pg (27-33); Mean Corpuscular Volume 89.1 fl (82-101); Nucleated Red Blood Cells % 0 %; Platelet Count 141 10^3/cmm (157-399); Red Blood Count 5.33 10^6/uL (3.85-5.65); White Blood Count 5.77 10^3/uL (3.29-11.43)
[2025-03-24 13:25] LABS: Ferritin 57 ng/mL (30-400)
[2025-03-24 14:11] VITALS: BP 129/90; PULSE 77; RESP 16; O2SAT 98
== END 2025-03-30 23:59 | disposition home or self-care (01) ==
LOC: ONCMED 12:47
PROVIDERS: Internal Medicine Medical Oncology; PCP Family Medicine; Visit Provider Internal Medicine
DX: E83.110 Hereditary hemochromatosis (principal)
CPT/HCPCS: 36415; 82728; 85025; 99195

== ENCOUNTER → 2025-04-10 15:19 | Outpatient (BNVA) | payer OTHER, SELFPAY | PROVIDERS: PCP Family Medicine; Visit Provider Family Medicine | DX: E11.9 Type 2 diabetes mellitus without complications (principal); E83.119 Hemochromatosis, unspecified; K75.81 Nonalcoholic steatohepatitis (NASH); R79.89 Other specified abnormal findings of blood chemistry | CPT/HCPCS: 80053; 83036; 85025 ==

== ENCOUNTER 2025-04-21 14:00 | Oncology outpatient (recurring) (ONCR) | payer OTHER, SELFPAY ==
[2025-04-07 13:18] LABS: Hematocrit 46.9 % (37-53); Hemoglobin 15.90 g/dL (11.27-16.99); Mean Corpuscular HGB Conc 33.9 g/dL (30-55); Mean Corpuscular Hemoglobin 30.3 pg (27-33); Mean Corpuscular Volume 89.5 fl (82-101); Nucleated Red Blood Cells % 0 %; Platelet Count 161 10^3/cmm (157-399); Red Blood Count 5.24 10^6/uL (3.85-5.65); White Blood Count 6.09 10^3/uL (3.29-11.43)
[2025-04-07 13:42] LABS: Ferritin 33 ng/mL (30-400)
--- NOTE | 2025-04-07 13:47 | PC.NURSE ---
Reviewed pt's labs. Ferritin 33, pt did not need phlebotomy at this time. Pt to return as scheduled./lc
== END 2025-04-30 23:59 | disposition home or self-care (01) ==
PROVIDERS: Internal Medicine Medical Oncology; PCP Family Medicine; Visit Provider Internal Medicine
DX: E83.110 Hereditary hemochromatosis (principal)
CPT/HCPCS: 36415; 82728; 85025